=== PATIENT | female | born 1970 | race African-American/Black ===

== ENCOUNTER 2016-08-25 11:28 | Emergency (ER) | payer OTHER ==
[2016-08-25 11:32] VITALS: BP 166/90; PULSE 75; RESP 17; TEMP 98.3; O2SAT 99
--- NOTE | 2016-08-25 12:36 | PD ---
HPI Chief Complaint: Skin Problem Time Seen by Provider: 12:36 Travel History International Travel<30 days: No Contact w/Intl Traveler<30days: No Traveled to known affect area: No History of Present Illness HPI 45 YO female presents to the ED for evaluation of bilateral eyelid irritation after an false eyelashes applied yesterday. Patient endorses mild blurry vision which she attributes to eyelid swelling. She denies fever, chills, nausea vomiting, difficulties with breathing, close throat feeling, pruritus. She removed the false eyelashes and treated with Benadryl overnight with some improvement in symptoms. PFSH Social History Tobacco Use: No Allergies-Medications (Allergen,Severity, Reaction): Coded Allergies: No Known Allergies (Unverified , 08/25/16) Reported Meds & Prescriptions Reported Meds & Active Scripts Active Elestat Opth Drops (Epinastine Opth Drops) 0.05% Drops 1 Drop EACH EYE BID Review of Systems Except as stated in HPI: all other systems reviewed are Neg Physical Exam Narrative GENERAL: Well-nourished, well-developed is a black female in no acute distress. SKIN: Warm and dry. HEAD: Normocephalic. Atraumatic. EYES: No scleral icterus. No injection or drainage. PERRLA. EOMI. mild erythema and edema of the upper eyelids bilaterally. No disturbance of the palpebral surfaces bilaterally. Funduscopic exam normal bilaterally. Fluorescein exam normal bilaterally. ENT: Pearly salazar tympanic membranes bilaterally. Nasal mucosa is moist. Oropharynx without erythema, edema or exudate. Airway patent. Uvula midline. NECK: Supple, trachea midline. No JVD or lymphadenopathy. CARDIOVASCULAR: Regular rate and rhythm without murmurs, gallops, or rubs. RESPIRATORY: Breath sounds clear and equal bilaterally. No accessory muscle use. GASTROINTESTINAL: Abdomen soft, non-tender, nondistended. MUSCULOSKELETAL: No cyanosis, or edema. Patient is ambulatory and moves extremities spontaneously. BACK: Nontender without obvious deformity. No CVA tenderness. Data Data Last Documented VS Vital Signs Date Time Temp Pulse Resp B/P Pulse Ox O2 Delivery O2 Flow Rate FiO2 08/25/16 11:32 98.3 75 17 166/90 99 MDM Medical Decision Making Medical Screen Exam Complete: Yes Emergency Medical Condition: Yes Differential Diagnosis Allergic blepharitis versus conjunctivitis versus corneal abrasion versus other Narrative Course 45 YO female presents to the ED for evaluation of bilateral eyelid irritation after an false eyelashes applied yesterday. Patient endorses mild blurry vision which she attributes to eyelid swelling. She denies fever, chills, nausea vomiting, difficulties with breathing, close throat feeling, pruritus. She removed the false eyelashes and treated with Benadryl overnight with some improvement in symptoms. Vitals reviewed. Physical exam reveals a pleasant black female in no acute distress. There is some irritation of the upper eyelids bilaterally but the eye exam is otherwise unremarkable. Allergic blepharitis. She was prescribed Elestat eye drops 2 drops twice a day to reduce inflammation. I informed the patient that alternatively she could use Visine-A a few times a day to reduce inflammation. She is instructed to avoid adhesives, follow-up with the industrial court magistrate if symptoms don't improve. She indicated understanding of instructions. She is stable and discharged home. Diagnosis Primary Impression: Allergic blepharitis Qualified Code: H01.119 - Allergic blepharitis, unspecified laterality Referrals: [facility] Additional Instructions: Rest, hydrate. Do not apply adhesives to the eyelids. 1-2 drops of antihistamine drops a few times a day in each eye to reduce inflammation. If you prefer to use OTC medications, use VISINE-A. Follow-up with the primary care provider or industrial court magistrate should irritation persist. Return to the ED for any urgent or emergent medical condition. Med/Other Pt SpecificInfo: Prescription(s) given Scripts Epinastine Opth Drops (Elestat Opth Drops)0.05% Drops1 Drop EACH EYE BID #1 BOTTLE Ref 0 Prov:Priscilla Sorto MD 08/25/16 Disposition: 01 DISCHARGE HOME Condition: Stable Rachele Mack Aug 25, 2016 12:36
[2016-08-25] MEDS ORDERED: ELES0.05 EACH EYE (12:59)
== END 2016-08-25 13:24 | disposition home or self-care (01) ==
LOC: NEPD 11:28
DX: H01.009 Unspecified blepharitis unspecified eye, unspecified eyelid (principal)
CPT/HCPCS: 99283